=== PATIENT | female | born 1940 | race Caucasian/White ===

== ENCOUNTER 2016-09-10 07:56 | Day surgery (SDC) | payer MEDICARE, BC ==
[2016-09-10 11:20] VITALS: RESP 20; TEMP 97.7
[2016-09-10 11:22] VITALS: BP 185/84; PULSE 89; O2SAT 94
== END 2016-09-10 11:45 | disposition home or self-care (01) | DRG 379 ==
LOC: SURG 07:56
PROVIDERS: ATTEND Surgery
DX: K62.5 Hemorrhage of anus and rectum (principal); D12.2 Benign neoplasm of ascending colon; K57.30 Diverticulosis of large intestine without perforation or abscess without bleeding; D12.5 Benign neoplasm of sigmoid colon; D12.3 Benign neoplasm of transverse colon; K63.5 Polyp of colon
CPT/HCPCS: J2001

== ENCOUNTER 2017-06-27 06:00 | Day surgery (SDC) | payer MEDICARE, BC ==
[~2017-06-27 06:00] MED LIST: ACETAZOLAMIDE 500 MG CER ONE
[2017-06-27 06:13] VITALS: TEMP 97
[2017-06-27] MEDS: PROPARACAINE HCL 0.5% OPHTHALMIC SOL ONE ×3 (06:21→07:35)
[2017-06-27] MEDS: PHENYLEPHRINE HCL 10% OPHTHAL SOL ONE ×2 (06:21→06:33)
[2017-06-27] MEDS: CYCLOPENTOLATE 1% SOL ONE ×2 (06:22→06:34)
[2017-06-27] MEDS: KETOROLAC 0.5% OPTH 60 DROP SOL ONE ×2 (06:22→06:34)
[2017-06-27] MEDS ORDERED: POVIDONE IODINE 5% SOL ONE (06:55)
[2017-06-27] MEDS ORDERED: LIDOCAINE HCL 1% MPF SOL ONE (06:55)
[2017-06-27] MEDS ORDERED: BSS 500 ML 500 ML IR ONE (06:56)
[2017-06-27] MEDS ORDERED: MIDAZOLAM 2 MG/2 ML SOL ONE (07:25)
[2017-06-27 08:23] VITALS: PULSE 70; RESP 20
[2017-06-27 08:28] VITALS: BP 176/77; O2SAT 95
== END 2017-06-27 08:35 | disposition home or self-care (01) | DRG 125 ==
LOC: SURG 06:00
PROVIDERS: ATTEND Ophthalmology
DX: H25.9 Unspecified age-related cataract (principal)
CPT/HCPCS: J2250; J2001

== ENCOUNTER 2017-09-18 11:01 | Inpatient (IN) | payer MEDICARE, BC ==
[2017-09-18] MEDS ORDERED: LORAZEPAM 0.5 MG TAB PO PRN (11:33)
[2017-09-18] MEDS ORDERED: LORAZEPAM 2 MG/ML SOL IV PRN (11:36)
[2017-09-18] MEDS: SODIUM CHLORIDE 0.9% FLUSH 10 ML SOL IV SCH ×2 (11:45→22:05)
[2017-09-18 12:40] LABS: BASOPHILS % (AUTO) 1 % (0-3); EOSINOPHILS % (AUTO) 1 % (0-9); HEMATOCRIT 31 % (35-47); MEAN CORPUSCULAR HGB CONC 34.7 gm/dl (32.0-36.0); MONOCYTES % (AUTO) 8.6 % (0-12); NEUTROPHILS % (AUTO) 67.8 % (37-80)
[2017-09-18 12:56] LABS: POTASSIUM 3.9 mMol/L (3.5-5.1); SODIUM 148 mMol/L (136-145)
[2017-09-18 13:13] LABS: GLOM FILT RATE 216 mL/min (>60)
[2017-09-18 13:36] LABS: MEAN CORPUSCULAR VOLUME 102 fL (81-99)
[2017-09-18 13:37] LABS: ANISOCYTOSIS SLIGHT AMT
[2017-09-18 13:44] LABS: APPEARANCE,URINE Slightly Cloudy; BILIRUBIN,URINE NEGATIVE (NEGATIVE); COLOR,URINE Dark yellow; GLUCOSE, URINE (UA) NEGATIVE (NEGATIVE); KETONES,URINE 1+ (NEGATIVE); LEUKOCYTE ESTERASE ,URINE NEGATIVE (NEGATIVE); NITRATE,URINE NEGATIVE (NEGATIVE); OCCULT BLOOD,URINE TRACE INTACT (NEG-TRACE); UROBILINOGEN,URINE 0.2 (0.2-1.0 EU)
[2017-09-18 14:05] LABS: RBC,URINE 0-3 (0-3AV/HPF)
[2017-09-18 14:06] LABS: AMPHETAMINES NEGATIVE (NEGATIVE); METHADONE NEGATIVE (NEGATIVE); OPIATES(OP13) NEGATIVE (NEGATIVE); OXYCODONE(OXY) NEGATIVE (NEGATIVE); PROPOXYPHENE(PPX) NEGATIVE (NEGATIVE); TRICYCLIC ANTIDEPRESSANTS NEGATIVE (NEGATIVE)
[2017-09-18 16:28] LABS: ALBUMIN 3.4 gm/dl (3.4-5.0); ALT 209 IU/L (14-63); CALCIUM 8.8 mg/dl (8.5-10.1)
[2017-09-18] MEDS ORDERED: SIMVASTATIN 20 MG TAB PO SCH ×2 (17:00→21:00)
[2017-09-18] MEDS: GEMFIBROZIL 600 MG TAB PO SCH (17:02)
[2017-09-18] MEDS: CARBAMAZEPINE 100 MG CTB PO SCH (20:47)
[2017-09-18] MEDS ORDERED: GEMFIBROZIL 600 MG TAB PO SCH (21:00)
[2017-09-19 02:00] VITALS: TEMP 98.2
[2017-09-19] MEDS: SODIUM CHLORIDE 0.9% FLUSH 10 ML SOL IV SCH ×3 (02:02→12:11)
[2017-09-19] MEDS ORDERED: LEVOTHYROXINE SODIUM 137 MCG TAB PO SCH (07:00)
[2017-09-19] MEDS ORDERED: ATENOLOL 25 MG TAB PO SCH (09:00)
[2017-09-19] MEDS ORDERED: PANTOPRAZOLE SODIUM 40 MG ECT PO SCH ×2 (09:00→12:00)
[2017-09-19] MEDS ORDERED: FLUOXETINE HYDROCHLORIDE 10 MG CAP PO SCH (09:00)
[2017-09-19] MEDS ORDERED: MULTIVITAMIN2 1 EA TAB PO SCH (09:00)
[2017-09-19] MEDS ORDERED: METOPROLOL SUCCINATE 50 MG ER TAB PO SCH (09:00)
[2017-09-19 10:39] VITALS: PULSE 76; O2SAT 93
[2017-09-19] MEDS: CARBAMAZEPINE 100 MG CTB PO SCH (10:41)
[2017-09-19] MEDS: GEMFIBROZIL 600 MG TAB PO SCH (10:42)
[2017-09-19 13:53] VITALS: BP 156/73; RESP 14
[2017-09-20] MEDS ORDERED: FLUOXETINE HYDROCHLORIDE 10 MG CAP PO SCH (09:00)
[2017-09-20] MEDS ORDERED: AMLODIPINE 5 MG TAB PO SCH (09:00)
== END 2017-09-19 02:40 | disposition other institution (70) | DRG 897 ==
LOC: ACUTE CARE 11:33
PROVIDERS: ADMIT Family Medicine; ATTEND Family Medicine
DX: F10.10 Alcohol abuse, uncomplicated (principal); D64.9 Anemia, unspecified; E03.9 Hypothyroidism, unspecified; E78.5 Hyperlipidemia, unspecified; I10 Essential (primary) hypertension; M81.0 Age-related osteoporosis without current pathological fracture; M47.9 Spondylosis, unspecified; F32.9 Major depressive disorder, single episode, unspecified; Z86.010 Personal history of colon polyps; K21.9 Gastro-esophageal reflux disease without esophagitis; H35.3190 Nonexudative age-related macular degeneration, unspecified eye, stage unspecified
CPT/HCPCS: 80053; 80305; 80307; 81001; 85025; 87077; 87088; 87186